=== PATIENT | male | born 1930 | race Hispanic/Latino ===

== ENCOUNTER 2018-09-28 07:39 | Day surgery (SDC) | payer OTHER ==
[2018-09-28] MEDS ORDERED: Midazolam 2 MG/2 ML VIAL ONE (11:09)
[2018-09-28] MEDS ORDERED: Propofol 10 mg/ml Inj (20 ML) ONE (11:09)
[2018-09-28] MEDS ORDERED: LIDOCAINE HYDROCHLORIDE INJ ONE (11:11)
[2018-09-28 12:56] VITALS: O2SAT 100
[2018-09-28 13:51] VITALS: BP 111/64; PULSE 61; RESP 19; TEMP 97.7
--- NOTE | 2018-09-28 15:10 | RAD ---
Date of service: 09/28/2018 PROCEDURE: Intraoperative Fluoroscopy. HISTORY: LUMBAR SPONDYLOSIS FINDINGS: Fluoroscopic assistance was provided for pain management. Please refer to the operative report from EULALIA Mendez. Total fluoroscopic time (continuous mode) utilized during the procedure 29.7 seconds. Total exam DLP: 4.73 (mGy).
--- NOTE | 2018-09-29 06:01 | OP ---
PROCEDURE DATE: 09/28/2018 PREOPERATIVE DIAGNOSIS: Lumbar spondylosis without myelopathy. POSTOPERATIVE DIAGNOSIS: Lumbar spondylosis without myelopathy. PROCEDURE: Radiofrequency ablation of medial branch nerve of L3-L4, L4-L5, L5-S1 bilateral. X-RAY: [id number], fluoroscopy of the spine. ANESTHESIA: MAC/local. SURGEON: Katia Diaz MD COMPLICATIONS: None. BLOOD LOSS: 2 mL. INDICATION: On physical exam, the pain was made worse by side bending toward the affected side or extending the spine/backward bending. A medial branch diagnostic injection reveals that the pain at least partially originates in the facet joints or its nerves, and that the radiofrequency procedure can reasonably be expected to provide long-term relief. The pain continues to adversely affect quality of life and activities of daily living. The patient was referred for pain management by the above referring physician. TECHNIQUE: After comprehensive informed consent was obtained, the risks of the procedure explained and questions answered. The patient was placed in prone position. Confirmation of the procedure to be performed was obtained from the patient. The skin overlying the area to be injected was cleaned in a strict sterile fashion using chlorhexidine. Sterile drape was placed around the area to be injected. The desired level was identified, and the C-arm was rotated 5-degrees off midline. The area to be injected was superficially anesthetized with 1 mL of 1% lidocaine using a 27-gauge, 1.25-inch needle at each level noted above. A 22-gauge, 100-mm curved insulated radiofrequency needle with 10-millimeter exposed tip was inserted and directed ventro-medially to contact bone at each desired level. The patient experienced no paresthesias during needle placement. A radiofrequency lesion generator was used for electrical stimulation and lesion creation. Stimulation is then carried out using a frequency of 50 Hz and a current up to 0.6 mA for sensory detection and a frequency of 2 Hz with current between 1 to 3 mA for motor stimulation. A positive stimulation caused pressure-like feeling in the area of usual pain, but did not reproduce other sensory or motor findings in the lower extremity past the knees. On lateral fluoroscopy, the needle tips were posterior to the neural foramina. After negative aspiration for blood, 1 mL of 1% lidocaine was injected prior to thermal lesioning for anesthesia. A radiofrequency lesion was then created by passing current through the electrode to raise the tissue temperature to 80 degrees centigrade for 90 seconds. The procedure was repeated in the same fashion at the above-noted vertebral levels. The needle was flushed with 1 mL 1% lidocaine. Several Band-Aids were placed over the puncture sites. DISPOSITION: Following the procedure, neurological function of the legs was at baseline. The patient was given verbal and written discharge instructions including contact information if there were any complications. The patient was discharged in stable condition with instructions to follow up in two weeks. Katia Diaz MD
== END 2018-09-28 12:25 | disposition home or self-care (01) ==
LOC: C.SDS 07:39
PROVIDERS: ATTEND Anesthesiology Pain Medicine
DX: M47.816 Spondylosis without myelopathy or radiculopathy, lumbar region (principal); E11.9 Type 2 diabetes mellitus without complications; I25.2 Old myocardial infarction; I34.1 Nonrheumatic mitral (valve) prolapse; Z95.0 Presence of cardiac pacemaker
CPT/HCPCS: 64635; 64636; 82948; J2001; J2250; J2704